=== PATIENT | female | born 1985 | race Caucasian/White ===

== ENCOUNTER 2016-10-24 16:22 | Emergency (ER) | payer BC, OTHER ==
[~2016-10-24] VITALS: Ht 165.1 cm; Wt 91.4 kg
[2016-10-24 16:35] VITALS: BP 150/100; PULSE 92; TEMP 37; O2SAT 97; Ht 165.1 cm; Wt 91.4 kg
--- NOTE | 2016-10-24 17:04 | DIAGNOSTIC IMAGING REPORT ---
RIGHT FOOT 3 VIEWS CLINICAL HISTORY: Right foot pain. FINDINGS: 3 views of the right foot are obtained. No prior studies are available for comparison at the time of dictation. The skeletal structures are well mineralized. No fracture is seen. The joint spaces of the foot are well-maintained. An os trigonum is incidentally noted. There is marked dorsal soft tissue edema. IMPRESSION: Marked dorsal soft tissue edema. No acute fracture is identified. Electronically signed by: Juanjo Mcclelland M.D. 10/24/2016 5:02 PM Dictated Date/Time: 10/24/2016 5:00 PM
--- NOTE | 2016-10-24 17:14 | EMERGENCY ROOM VISIT NOTE ---
ED Visit Note First contact with patient: 16:40 CHIEF COMPLAINT: Right foot injury several hours ago Patient is a 31-year-old white female who presents emergency department for evaluation of right foot pain after an injury a few hours ago. She states that she was barefoot and a wooden bench fell, striking across the top of her right foot. She noted swelling and bruising almost immediately. She has applied ice. She has not taken any medication for pain. She has discomfort with walking and weightbearing. She rates her pain a 1/10. She has not taken any medication for discomfort. No ankle pain. REVIEW OF SYSTEMS: Review of systems as per HPI. All other systems reviewed were negative. At least 6 systems reviewed. PMH: Electronic medical records are reviewed and summarized as above/below. See Problem List. SOCIAL HISTORY: Patient lives at home. Nonsmoker. PHYSICAL EXAM: Vital Signs: Reviewed Nurse's notes. GENERAL: Pleasant 31-year- old white female who is awake and alert and sitting in a wheelchair in no acute distress.. Foot: There is ecchymosis, tenderness and swelling over the dorsum of the foot particularly over the second, third and fourth metatarsals. No obvious deformity. The range of motion limited secondary to pain. Skin is intact. EMERGENCY DEPARTMENT COURSE: Icepack was applied. X-rays of the right foot were obtained and were negative for fracture. Patient was wrapped with an trevin wrap issued crutches. Conservative care measures were discussed. Differential diagnosis includes fracture, sprain and contusion. RIGHT FOOT 3 VIEWS CLINICAL HISTORY: Right foot pain. FINDINGS: 3 views of the right foot are obtained. No prior studies are available for comparison at the time of dictation. The skeletal structures are well mineralized. No fracture is seen. The joint spaces of the foot are well-maintained. An os trigonum is incidentally noted. There is marked dorsal soft tissue edema. IMPRESSION: Marked dorsal soft tissue edema. No acute fracture is identified. Current/Historical Medications No Active Prescriptions or Reported Meds Allergies Coded Allergies: No Known Allergies (Unverified , 10/24/16) Vital Signs Date Time Temp Pulse Resp B/P Pulse Ox O2 Delivery O2 Flow Rate FiO2 10/24/16 16:35 37.0 92 20 150/100 97 Room Air Departure Information Impression Primary Impression: Contusion of right foot Prescriptions No Active Prescriptions or Reported Meds Referrals No Doctor, Assigned (PCP) Patient Instructions [facility] Additional Instructions Ibuprofen(Motrin, Advil) may be used for fever or pain. Use 600mg every six hours as needed. Take with food. Avoid using more than 2400mg in a 24 hour period. Do not use 2400mg per day for more than three consecutive days without physician direction. Prolonged inappropriate use can lead to stomach upset or ulcers. This medication can be taken if you need to drive, work, or perform activities which may be dangerous when taking narcotic pain medication. (AND/OR) Acetaminophen(Tylenol) may be used for fever or pain. Use 1000mg every six hours as needed. Avoid using more than 3000mg in a 24 hour period. This medication can be taken if you need to drive, work, or perform activities which may be dangerous when taking narcotic pain medication. Ice compresses for 20 minutes at a time four times daily for 2-3 days. Use the Trevin wrap and crutches as instructed. Rest and elevate your injury. Continue current medications. Return to the ER immediately for any numbness, tingling, severe pain, extreme swelling in the extremity or as needed. Followup with your family doctor or orthopedic surgery if no improvement in 5-7 days.
== END 2016-10-24 17:31 | disposition home or self-care (01) ==
LOC: C.EDB 16:25 → C.EDA 17:31
DX: S90.31XA Contusion of right foot, initial encounter (principal); W20.8XXA Other cause of strike by thrown, projected or falling object, initial encounter